=== PATIENT | female | born 1995 | race Two or more races ===

== ENCOUNTER 2016-10-03 14:07 | Emergency (ER) | payer OTHER ==
[2016-10-03 14:55] LABS: SPECIFIC GRAVITY 1.025 (1.001-1.030); URINE BILIRUBIN NEGATIVE (NEGATIVE); URINE BLOOD 2+ (NEGATIVE); URINE GLUCOSE (UA) NEGATIVE (NEGATIVE); URINE LEUKOCYTE ESTERASE NEGATIVE (NEGATIVE); URINE NITRITE NEGATIVE (NEGATIVE); URINE PROTEIN NEGATIVE (NEGATIVE); URINE UROBILINOGEN NORMAL (0-1 mg/dl)
[2016-10-03 14:56] LABS: HCG,QUALITATIVE URINE POSITIVE
[2016-10-03 15:09] LABS: URINE APPEARANCE HAZY; URINE COLOR YELLOW
[2016-10-03 15:11] LABS: URINE RBC 0-1 /hpf; URINE WBC 0-1 /hpf
[2016-10-03 15:12] LABS: URINE BACTERIA FEW
[2016-10-03 15:27] LABS: ABSOLUTE NEUTROPHIL COUNT 2.3 K/mm3 (1.8-7.7); BASO % 0.5 % (0.2-1.0); EOS # 0.1 (0.0-0.5); EOS % 1.4 % (0.9-2.9); HEMOGLOBIN 11.8 gm/l (12.0-16.0); IMM NEUT% 0.2 % (0-1); LYMPH # 1.6 (1.0-4.8); LYMPH % 37.2 % (15-45); MEAN CELL VOLUME 95.5 fl (81.0-99.0); MEAN CORPUSCULAR HEMOGLOBIN 31.3 pg (27.0-31.0); MEAN CORPUSCULAR HGB CONC 32.8 g/dl (33.0-37.0); MEAN PLATELET VOLUME 9.9 fl (7.4-10.4); MONO # 0.2 (0.0-0.8); MONO % 5.5 % (4-12); NEUT % 55.2 % (43-75); PLATELET COUNT 212 K/mm3 (130-400); RED CELL DISTRIBUTION WIDTH 12.2 % (11.5-14.5)
--- NOTE | 2016-10-03 17:50 | US ---
Exam: Complete obstetric ultrasound less than 14 weeks COMPARISON: None INDICATION: Bleeding in . FINDINGS: Transabdominal and transvaginal obstetric ultrasound less than 14 weeks was obtained. Real-time sonographic imaging demonstrated evidence of an intrauterine . There is a crown-rump length of 4 mm which correlates with a gestational age of 6 weeks 1 day and a sonographic LENARD of 05/28/2017. No cardiac activity was identified within the pole, however this may not be seen until it reaches 7 mm. Mean sac diameter of 1.7 cm also correlates with a gestational age of 6 weeks 1 day. Normal yolk sac is seen. No perigestational hemorrhage is identified. Right ovary measures 2.1 x 1.5 x 2.5 cm and left ovary measures 3.2 x 1.5 x 2.1 cm. There is no cystic or solid ovarian mass. There is no separate adnexal mass. Blood flow is present within both ovaries. IMPRESSION: Findings compatible with an intrauterine of approximately 6 weeks 1 day gestation, however no cardiac activity was seen within the pole. Sometimes cardiac activity may not be seen until the pole reaches 7 mm. Consider repeat ultrasound in one week to confirm viability. Report was uploaded to the EMR at 1745 hours 10/03/2016.
[2016-10-06 14:03] LABS: CHLAMYDIA BD Positive (Negative); N.GONORRHOEAE BD Negative (Negative); SOURCE Urine (())
== END 2016-10-03 18:58 | disposition home or self-care (01) ==
LOC: ED 14:07
DX: O20.0 Threatened abortion (principal); Z3A.09 9 weeks gestation of pregnancy